=== PATIENT | male | born 1970 | race American Indian/Alaskan Native ===

== ENCOUNTER 2020-06-21 23:42 | Emergency (ER) | payer SELFPAY ==
[2020-06-22 00:05] VITALS: BP 131/89
--- NOTE | 2020-06-22 00:32 | XRay Report ---
Right shoulder-3 views INDICATION: right shoulder pain. COMPARISON: None. IMPRESSION: Large amorphous density projects over the superior aspect of the humeral head and measur es approximately 1.9 cm. This appears to be in the region of the acromiohumeral interval on the scapu lar Y view and may represent hydroxyapatite deposition. Otherwise there is no acute abnormality and mild degenerative change in the glenohumeral joint. Visualized right lung is clear. Signer Name: James Farrar MD Signed: 06/22/2020 12:27 AM Workstation Name: [id number]
[2020-06-22] MEDS ORDERED: ACETAMINOPHEN 325 MG TAB ONE (00:50)
[2020-06-22] MEDS ORDERED: ACETAMINOPHEN 325 MG TAB PO ONE (00:56)
[2020-06-22] MEDS ORDERED: HYDROcodone/ACETAMINOPHEN 5-325 MG TAB PO ONE (01:28)
[2020-06-22] MEDS ORDERED: dexAMETHasone 20 MG/5 ML VIAL IM ONE (01:28)
--- NOTE | 2020-06-22 01:55 | Emergency Department Report ---
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 Patient states history of arthralgia, states he went to sleep on shoulder in his truck 3 days ago and woke up with pain 7/10 aching exacerbated by movement. Pain is relieved by nothing tried. There is no abrasion laceration or bleeding. No paralysis. - Related Data Previous Rx's Medication Instructions Recorded Last Taken Type Acetaminophen/Codeine [Tylenol 1 tab PO Q6H PRN #12 tab 06/22/20 Unknown Rx /Codeine # 3 tab] Cyclobenzaprine [Flexeril] 10 mg PO TID PRN #30 tablet 06/22/20 Unknown Rx Menthol/Camphor [[place] 1 applicatio TP TID PRN #1 tube 06/22/20 Unknown Rx Neck-Shoulder Cream] Naproxen 500 mg PO BID PRN #30 tablet 06/22/20 Unknown Rx Allergies Allergy/AdvReac Type Severity Reaction Status Date / Time No Known Allergies Allergy Verified 06/22/20 01:00 ED Review of Systems ROS: Stated complaint: SHOULDER PAIN Other details as noted in HPI Constitutional: denies: chills, fever Eyes: denies: eye pain, eye discharge, vision change ENT: denies: ear pain, throat pain Respiratory: denies: cough, shortness of breath, wheezing Cardiovascular: denies: chest pain, palpitations Endocrine: no symptoms reported Gastrointestinal: denies: abdominal pain, nausea, diarrhea Genitourinary: denies: urgency, dysuria Musculoskeletal: arthralgia, other (Right Shoulder pain ). denies: back pain, joint swelling Skin: denies: rash, lesions Neurological: denies: headache, weakness, paresthesias Psychiatric: denies: anxiety, depression Hematological/Lymphatic: denies: easy bleeding, easy bruising ED Past Medical Hx - Past Medical History Previous Medical History?: No - Surgical History Past Surgical History?: No - Social History Smoking Status: Never Smoker Substance Use Type: None - Medications Home Medications: Home Medications Medication Instructions Recorded Confirmed Last Taken Type Acetaminophen/Codeine [Tylenol 1 tab PO Q6H PRN #12 tab 06/22/20 Unknown Rx /Codeine # 3 tab] Cyclobenzaprine [Flexeril] 10 mg PO TID PRN #30 tablet 06/22/20 Unknown Rx Menthol/Camphor [[place] 1 applicatio TP TID PRN #1 tube 06/22/20 Unknown Rx Neck-Shoulder Cream] Naproxen 500 mg PO BID PRN #30 tablet 06/22/20 Unknown Rx ED Physical Exam - General Limitations: No Limitations General appearance: alert, in no apparent distress - Head Head exam: Present: normocephalic, normal inspection - Eye Eye exam: Present: normal appearance, EOMI Pupils: Present: normal accommodation - ENT ENT exam: Present: mucous membranes moist - Neck Neck exam: Present: normal inspection, full ROM. Absent: tenderness - Respiratory Respiratory exam: Present: normal lung sounds bilaterally. Absent: respiratory distress, wheezes, stridor, chest wall tenderness - Cardiovascular Cardiovascular Exam: Present: regular rate, normal rhythm, normal heart sounds. Absent: systolic murmur, diastolic murmur, rubs, gallop - GI/Abdominal GI/Abdominal exam: Present: soft, normal bowel sounds. Absent: distended, tenderness, guarding, rebound, rigid, bruit, hernia - Rectal Rectal exam: Present: deferred - exam: Present: normal inspection - Extremities Exam Extremities exam: Present: tenderness (right anterior lateral shoulder tenderness no crepitus, no deformity, shoulder drop restricted by pain, distal pulses intact, pain with pronation and supination ), normal capillary refill. Absent: joint swelling - Expanded Upper Extremity Exam Right Shoulder Exam: Present: tenderness, tenderness over AC joint. Absent: swelling, abrasion, laceration, ecchymosis, deformity, crepidus, dislocation, erythema Upper Arm exam: Present: full ROM. Absent: tenderness Elbow exam: Present: full ROM. Absent: tenderness Forearm Wrist exam: Present: full ROM. Absent: tenderness Hand Wrist exam: Present: full ROM. Absent: tenderness Neuro motor exam: Present: wrist extension intact, thumb opposition intact, thumb IP flexion intact, thumb adduction intact, fingers 2-5 abduction intact Neurosensory exam: Present: radial nerve intact Vascular: Present: normal capillary refill - Back Exam Back exam: Present: normal inspection, full ROM. Absent: tenderness, vertebral tenderness - Neurological Exam Neurological exam: Present: alert, oriented X3, CN II-XII intact, normal gait, reflexes normal. Absent: motor sensory deficit - Expanded Neurological Exam Expanded Patient oriented to: Present: person, place, time Speech: Present: fluid speech Motor strength exam: RUE: 5, LUE: 5 DTR: bicep (R): 2+, bicep (L): 2+, tricep (R): 2+, tricep (L): 2+ Best Eye Response ([place]): (4) open spontaneously Best Motor Response ([place]): (6) obeys commands Best Verbal Response ([place]): (5) oriented [place] Total: 15 - Psychiatric Psychiatric exam: Present: normal affect, normal mood - Skin Skin exam: Present: warm, dry, intact, normal color. Absent: rash ED Course Vital Signs 06/22/20 00:01 Temperature 99.4 F Pulse Rate 80 Respiratory 18 Rate Blood Pressure 131/89 O2 Sat by Pulse 97 Oximetry ED Medical Decision Making - Radiology Data Radiology results: report reviewed, image reviewed Findings Reporting MD: James Farrar Dictation Time: June 21, 2020 23:27 Judicial Reporter: Not available Asset Protection Assistant Date: Right shoulder-3 views INDICATION: right shoulder pain. COMPARISON: None. IMPRESSION: Large amorphous density projects over the superior aspect of the humeral head and measures approximately 1.9 cm. This appears to be in the region of the acromiohumeral interval on the scapular Y view and may represent hydroxy apatite deposition. Otherwise there is no acute abnormality and mild degenerative change in the glenohumeral joint. Visualized right lung is clear. Signer Name: James Farrar MD Signed: 06/21/2020 11:27 PM Workstation Name: [id number] - Medical Decision Making Xray right shoulder: hydroxyapatite deposition. Otherwise there is no acute abnormality and mild degenerative change in the glenohumeral joint. Visualized right lung is clear. , plan: nsaids, steroid, analgesic balm , moist heat therapy, follow up with ortho in 2-3 days, pt dc'd to home with sling. Critical care attestation.: If time is entered above; I have spent that time in minutes in the direct care of this critically ill patient, excluding procedure time. ED Disposition Clinical Impression: Shoulder sprain Qualifiers: Encounter type: initial encounter Shoulder sprain type: unspecified sprain Laterality: right Qualified Code(s): S43.401A - Unspecified sprain of right shoulder joint, initial encounter Arthralgia Qualifiers: Joint pain location: shoulder Laterality: right Qualified Code(s): M25.511 - Pain in right shoulder Disposition: DC- TO HOME OR SELFCARE Is pt being admited?: No Does the pt Need Aspirin: No Condition: Stable Instructions: Shoulder Sprain, How to Use a Shoulder Immobilizer Prescriptions: Cyclobenzaprine [Flexeril] 10 mg PO TID PRN #30 tablet PRN Reason: Muscle Spasm Naproxen 500 mg PO BID PRN #30 tablet PRN Reason: pain Menthol/Camphor [[place] Neck-Shoulder Cream] 1 applicatio TP TID PRN #1 tube PRN Reason: pain Acetaminophen/Codeine [Tylenol /Codeine # 3 tab] 1 tab PO Q6H PRN #12 tab PRN Reason: pain Referrals: VIKKI POWELL MD [Staff Physician] - 3-5 Days Forms: Work/School Release Form(ED) Time of Disposition: 02:03
== END 2020-06-22 02:10 | disposition home or self-care (01) ==
LOC: ED 23:42
DX: S43.401A Unspecified sprain of right shoulder joint, initial encounter (principal); X50.9XXA Other and unspecified overexertion or strenuous movements or postures, initial encounter; Y93.89 Activity, other specified; Y92.89 Other specified places as the place of occurrence of the external cause; Y99.8 Other external cause status
CPT/HCPCS: 73030; 96372; 99284; J1100